=== PATIENT | male | born 1970 | race Caucasian/White ===

== ENCOUNTER 2022-10-13 13:52 | Emergency (ER) | payer OTHER ==
[~2022-10-13] VITALS: Ht 157.5 cm; Wt 86.2 kg
[~2022-10-13 13:52] MED LIST: MEDROL32 MG PO; TAGAMET800 MG PO
[2022-10-13] MEDS ORDERED: LIPITOR40 M1 PO (14:16)
== END 2022-10-13 17:10 | disposition home or self-care (01) ==
LOC: ER 13:52
DX: L97.829 Non-pressure chronic ulcer of other part of left lower leg with unspecified severity (principal); L97.819 Non-pressure chronic ulcer of other part of right lower leg with unspecified severity; S80.862A Insect bite (nonvenomous), left lower leg, initial encounter; S80.861A Insect bite (nonvenomous), right lower leg, initial encounter; W57.XXXA Bitten or stung by nonvenomous insect and other nonvenomous arthropods, initial encounter; Y93.9 Activity, unspecified; Y92.9 Unspecified place or not applicable

== ENCOUNTER 2022-12-12 19:12 | Emergency (ER) | payer OTHER ==
[~2022-12-12] VITALS: Ht 157.5 cm; Wt 86.2 kg
[~2022-12-12 19:12] MED LIST changes: +LIPITOR40 M1 PO
[2022-12-12] MEDS ORDERED: JARDIANCE10 MG (19:25)
== END 2022-12-12 22:53 | disposition home or self-care (01) ==
LOC: ER 19:12
DX: R04.0 Epistaxis (principal); R05.9 Cough, unspecified; Z88.8 Allergy status to other drugs, medicaments and biological substances

== ENCOUNTER 2024-09-01 17:19 | Emergency (ER) | payer OTHER ==
[~2024-09-01] VITALS: Ht 157.5 cm; Wt 82.1 kg
[~2024-09-01 17:19] MED LIST changes: +JARDIANCE10 MG
[2024-09-01] MEDS ORDERED: MOUNJARO5 MG/0.5 M SQ (18:00)
[2024-09-01] MEDS ORDERED: ZETIA10 MG PO (18:00)
[2024-09-01] MEDS ORDERED: BAYER ADVANCED500 MG (18:01)
[2024-09-01] MEDS ORDERED: CLINDAMYCIN PHOSPHATE 150 MG/ML (300mg) ONE (20:59)
[2024-09-01] MEDS ORDERED: TETANUS DIPHTHERIA TOX. ADSOR 5 ML VIAL IM ONE (20:59)
[2024-09-01] MEDS ORDERED: TETANUS & DIPHTHERIA TOX,ADULT 0.5 ML VIAL IM ONE (21:00)
[2024-09-01] MEDS ORDERED: CLINDAMYCIN PHOSPHATE 150 MG/ML (300mg) IM ONE (21:15)
[2024-09-01] MEDS ORDERED: CLEOCIN HCL300 MG PO (21:45)
[2024-09-01] MEDS ORDERED: INTESTINEX680 M1 PO (21:45)
== END 2024-09-01 22:13 ==
LOC: ER 17:21
DX: S91.331A Puncture wound without foreign body, right foot, initial encounter (principal); X58.XXXA Exposure to other specified factors, initial encounter; Y93.89 Activity, other specified; Y92.098 Other place in other non-institutional residence as the place of occurrence of the external cause; Y99.8 Other external cause status; E11.9 Type 2 diabetes mellitus without complications; Z91.013 Allergy to seafood
CPT/HCPCS: 73630; 90471; 90714; J1670

== ENCOUNTER 2025-06-24 10:58 | Emergency (ER) | payer OTHER ==
[~2025-06-24] VITALS: Ht 160 cm; Wt 79.4 kg
[~2025-06-24 10:58] MED LIST changes: +BAYER ADVANCED500 MG; +CLEOCIN HCL300 MG PO; +INTESTINEX680 M1 PO; +MOUNJARO5 MG/0.5 M SQ; +ZETIA10 MG PO
[2025-06-24] MEDS ORDERED: 0.9 % SODIUM CHLORIDE 1,000 ML IV SCH (12:15)
[2025-06-24] MEDS ORDERED: FAMOtidine 10 MG/ML (4ML VIAL) IV PUSH ONE (12:15)
[2025-06-24] MEDS ORDERED: FAMOTIDINE/PF 20 MG/2 ML VIAL ONE (14:14)
[2025-06-24 15:45] LABS: BASO % 0.4 % (0.1-1.2); EOS # 0.16 (0.04-0.54); EOS % 2.2 % (0.7-7.0); LYMPH # 1.57 (1.18-3.74); LYMPH % 22.0 % (19.3-53.1); MEAN PLATELET VOLUME 11.00 fl (9.4-12.4); MONO # 0.52 (0.24-0.82); MONO % 7.3 % (4.7-12.5); NEUT # 4.85 (1.56-6.13); NEUT % 68.0 % (34.0-71.1); RED CELL DISTRIBUTION WIDTH 13.7 % (11.6-14.4)
[2025-06-24 15:57] LABS: ALT/SGPT 28.0 U/L (12-78); AST/SGOT 11.0 U/L (15-37); BILIRUBIN TOTAL 0.74 mg/dL (0.3-1.2); BUN CREA RATIO 24.0 (7.0-25.0); CREATININE SERUM 0.95 mg/dL (0.70-1.30); GFR 82.31; GLOBULINA 3.4 G/DL (2.4-3.5); GLUCOSE FASTING 113.0 mg/dL (65-100); OSMOLALITY SERUM 291.0 MOSM/KG (275-295)
== END 2025-06-24 18:13 | disposition home or self-care (01) ==
LOC: ER 10:58
PROVIDERS: General Practice
DX: K52.9 Noninfective gastroenteritis and colitis, unspecified (principal); R10.9 Unspecified abdominal pain; I10 Essential (primary) hypertension; E11.9 Type 2 diabetes mellitus without complications; Z91.013 Allergy to seafood

== ENCOUNTER 2025-08-13 11:04 | Emergency (ER) | payer OTHER ==
[~2025-08-13] VITALS: Ht 157.5 cm; Wt 80.3 kg
[2025-08-13] MEDS ORDERED: MOUNJARO10 MG/0.5 SQ (11:39)
[2025-08-13] MEDS ORDERED: CETIRIZINE HCL 5 MG/5 ML ML PO ONE (12:00)
[2025-08-13] MEDS ORDERED: BENZONATATE 200 MG CAPSULE PO ONE (12:00)
[2025-08-13] MEDS ORDERED: BUTALB/ACETAMINOPHEN/CAFFEINE 1 TAB TABLET PO ONE (12:00)
[2025-08-13 13:29] LABS: BASO % 0.2 % (0.1-1.2); EOS # 0.10 (0.04-0.54); EOS % 2.3 % (0.7-7.0); LYMPH # 0.98 (1.18-3.74); LYMPH % 22.1 % (19.3-53.1); MEAN PLATELET VOLUME 11.00 fl (9.4-12.4); MONO # 0.65 (0.24-0.82); NEUT # 2.69 (1.56-6.13); NEUT % 60.6 % (34.0-71.1); RED CELL DISTRIBUTION WIDTH 14.2 % (11.6-14.4)
[2025-08-13 13:40] LABS: MONO % 14.6 % (4.7-12.5)
[2025-08-13 15:35] LABS: COVID-19 AG NEGATIVE (NEGATIVE)
[2025-08-13] MEDS ORDERED: PEPCID AC20 MG PO (16:00)
[2025-08-13] MEDS ORDERED: LEVSIN/SL0.125 MG SL (16:00)
[2025-08-13] MEDS ORDERED: XYZAL5 MG PO (16:00)
== END 2025-08-13 17:14 | disposition home or self-care (01) ==
LOC: ER 11:04
PROVIDERS: General Practice
DX: B34.9 Viral infection, unspecified (principal); K52.9 Noninfective gastroenteritis and colitis, unspecified; J00 Acute nasopharyngitis [common cold]; E11.9 Type 2 diabetes mellitus without complications; R05.8 Other specified cough; R50.9 Fever, unspecified; Z91.013 Allergy to seafood; Z20.822 Contact with and (suspected) exposure to COVID-19